=== PATIENT | male | born 1970 | race Caucasian/White ===

== ENCOUNTER 2020-10-27 13:45 | Emergency (ER) | payer MEDICAID, SELFPAY ==
[2020-10-27 14:22] VITALS: RESP 16; TEMP 37.1; O2SAT 98; BMI 22.4
--- NOTE | 2020-10-27 14:32 | HMH.EDUTC ---
[facility] Disposition Clinical Impression: Muscle spasm Disposition: Home, Self-Care Condition on Discharge: Good Instructions: Cyclobenzaprine, Etodolac, DI for Muscle Spasm Additional Instructions: *Etodolac juana 6 hours with meal as needed for pain/inflammation *Remember you had a Toradol shot in the clinic today, which is similar to Motrin and Etodlac do not start Etodolac until at least 10pm tonight *Not additional anti-inflammatory like motrin, aleve, advil Iburprofen with the above amount of Etodolac. You can still take Tylenol every 4 hours as needed if you need something else for pain *Ice 20 minutes every 2 hours for the first 48 hours after the initial injury followed by moist heat every 20 minutes 3-4 times a day to affected area *Muscle relaxer every 8 hours as needed for muscle spasms but remember, it WILL cause drowsiness You cannot take it and drive, operate machinery or care for small children. *Keep this area active, no movement leads to more stiffness, However take it easy and avoid heavy lifting pushing or pulling *Follow up with you family doctor if no improvement for further treatment Return if needed Straight to ER if any life threatening symptoms Prescriptions: Etodolac [Etodolac 200mg Cap*] 200 mg PO Q6H PRN #20 cap PRN Reason: Moderate Pain Prescription Printed Cyclobenzaprine HCl [Flexeril 10mg tablet] 10 mg PO TID PRN #15 tab PRN Reason: Muscle Spasm Prescription Printed Referrals: Neymar Aguilar MD [Primary Care Provider] - As needed Time of Disposition: 14:43 Medical Decision Making - Sumit Inquiry Pt receiving controlled substance: No Sumit was queried for this patient: No Vital Signs: 10/27/20 14:22 10/27/20 14:55 Temperature 98.7 F 98.7 F Temperature Source Oral Oral Pulse Rate 87 Respiratory Rate 16 16 Blood Pressure 0/0 L Blood Pressure Source Automatic Cuff Blood Pressure Position Sitting 02 Sat by Pulse Oximetry 98 Oxygen Delivery Method Room Air Room Air Orders (Tests/Meds): ED MEDICATIONS Discontinued Medications Generic Name Dose Route Start Last Admin Trade Name Freq PRN Reason Stop Dose Admin Ketorolac Tromethamine 60 mg 10/27/20 14:33 10/27/20 14:44 Ketorolac 60mg/2ml Vial IM 10/27/20 14:34 60 mg ONCE ONE Administration Methylprednisolone Sodium Succinate 125 mg 10/27/20 14:33 10/27/20 14:44 Methylprednisolone Sod Succ 125mg Vial IM 10/27/20 14:34 125 mg ONCE ONE Administration [facility] HPI - General Stated complaint: right shoulder pain, no accident Time Seen by Provider: 10/27/20 14:32 Mode of Arrival: Ambulatory Source of Information: Patient Limitations: No Limitations Description of Symptoms (Recalled from Triage Doc. by RN): right shoulder pain. 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 State that he thinks he over did it with his shoulder States that he has been having muscle spasms on and off in his right shoulder States that when it acts up it feels like it goes down into the shoulder and upper arm States that hurts when he tries to raise it States that he has similar symptoms before and had to take anti-inflammatories - Related Data Previous Rx's Medication Instructions Recorded Azithromycin [Z-Ross 250mg Tab*] 250 mg PO UD DOSE PK #6 tab 09/23/18 methylPREDNISolone [Medrol] 4 mg PO DIRECTED #21 tab.ds.pk 09/23/18 Cyclobenzaprine HCl [Flexeril 10mg 10 mg PO TID PRN #15 tab 10/27/20 tablet] Etodolac [Etodolac 200mg Cap*] 200 mg PO Q6H PRN #20 cap 10/27/20 Allergies Allergy/AdvReac Type Severity Reaction Status Date / Time codeine Allergy V
[2020-10-27 14:55] VITALS: BP 0/0; PULSE 87; RESP 16; TEMP 37.1; O2SAT 98
== END 2020-10-27 14:56 | disposition home or self-care (01) ==
PROVIDERS: Emergency Provider Nurse Practitioner; PCP Family Medicine
DX: M62.838 Other muscle spasm (principal); M25.511 Pain in right shoulder; X50.0XXA Overexertion from strenuous movement or load, initial encounter; F17.210 Nicotine dependence, cigarettes, uncomplicated
CPT/HCPCS: 96372; 99202; G0463

== ENCOUNTER → 2021-08-29 18:14 | Outpatient (CLI) | payer MEDICAID, SELFPAY ==
[2021-08-29 19:12] LABS: Basophils % 0.5 % (0.1-2.0); Eosinophils # 0.1 K/mm3 (0.0-0.4); Hematocrit 44.2 % (42.0-52.0); Hemoglobin 14.8 g/dL (14.1-18.0); Lymphocytes # 1.9 K/mm3 (0.7-4.5); Lymphocytes % 28.8 % (10-50); Mean Corpuscular HGB Conc 33.5 g/dL (31.8-35.4); Mean Corpuscular Hemoglobin 32.5 pg (27.0-31.2); Mean Corpuscular Volume 97.1 fl (80-94); Mean Platelet Volume 8.2 fl (7.4-10.4); Monocytes # 0.5 K/mm3 (0.1-1.0); Monocytes % 6.9 % (1.7-9.3); Neutrophils # 4.1 K/mm3 (1.8-7.8); Neutrophils % 61.9 % (37.0-80.0); Platelet Count 271 K/mm3 (142-424); Red Blood Count 4.55 M/mm3 (4.60-6.20); Red Cell Distribution Width 12.8 % (11.5-17.5); White Blood Count 6.7 K/mm3 (4.8-10.8)
[2021-08-29 19:21] LABS: Chloride 104 mmol/L (98-107)
[2021-08-29 19:22] LABS: Potassium 4.9 mmoL/L (3.5-5.1); Sodium 139 mmol/L (136-145)
[2021-08-29 19:24] LABS: Alanine Aminotransferase 24 U/L (12-78); Anion Gap 11.9 mEq/L (5-15); Aspartate Amino Transferase 24 U/L (17-59); Blood Urea Nitrogen 15 mg/dl (9-20); Carbon Dioxide 28 mmol/L (22.0-30.0); Estimated Glomerular Filt Rate 120 ml/min (>60); GFR (African American) 146 ML/MIN (>60)
[2021-08-29 19:25] LABS: Albumin Level 4.3 g/dl (3.5-5.0); Albumin/Globulin Ratio 1.4 (1.1-1.8); Alkaline Phosphatase 84 U/L (38-126); Bilirubin,Total 0.5 mg/dl (0.2-1.3); Calcium 10.2 mg/dl (8.4-10.2); Chol/HDL Ratio 3.2 (1-3.5); Cholesterol 158 mg/dl (140-200); Glucose 99 mg/dl (74-100); HDL Cholesterol 50 mg/dl (40-60); Total Protein,Serum 7.3 g/dl (6.3-8.2); Triglycerides 79 mg/dl (30-150); VLDL Cholesterol 16 mg/dL (0-40)
[2021-08-29 19:36] LABS: Direct LDL Cholesterol 91.55 mg/dL (100-129)
[2021-08-29 19:42] LABS: T4 (Thyroxine) 9.2 ug/dl (5.53-11.0)
[2021-08-29 19:47] LABS: 25-OH Vitamin D, Total 41.8 ng/mL (30-100)
[2021-08-29 19:56] LABS: Thyroid Stimulating Hormone 1.29 uIU/mL (0.465-4.68)
== END ==
PROVIDERS: Visit Provider Nurse Practitioner Family
DX: M25.512 Pain in left shoulder (principal); Z76.89 Persons encountering health services in other specified circumstances
CPT/HCPCS: 80053; 80061; 82306; 84436; 84443; 85025

== ENCOUNTER → 2021-10-09 12:39 | Outpatient (CLI) | payer MEDICAID, SELFPAY ==
--- NOTE | 2021-10-09 12:46 | XR_ITS ---
PROCEDURE: XR SHOULDER LT MIN 2V CLINICAL INDICATION: left shoulder pain COMPARISON: CR [id number] VIEWS from 12/01/2012 FINDINGS: No fracture or dislocation. No lytic or blastic change. There is normal mineralization. There are mild osteoarthritic changes of the glenohumeral joint Other findings:None. IMPRESSION: Mild osteoarthritis glenohumeral joint Dictated by: Kyler Alexandra MD 10/09/2021 14:02 Kyler Alexandra MD in [place] 10/09/2021 14:02
== END ==
PROVIDERS: PCP Nurse Practitioner Family; Visit Provider Orthopaedic Surgery
DX: M25.512 Pain in left shoulder (principal)
CPT/HCPCS: 73030

== ENCOUNTER 2024-06-16 11:12 | Emergency (ER) | payer OTHER, SELFPAY ==
[2024-06-16 11:14] VITALS: BP 166/76; PULSE 60; RESP 16; TEMP 36.6; O2SAT 96; BMI 25.7
--- NOTE | 2024-06-16 11:22 | ED_ITS ---
Discharge Plan Disposition Patient Disposition: Home, Self-Care Condition: Good Referrals Follow up/Referrals: Bhavik Echavarria DO [Staff Physician] - See instructions Provider,Sadiq, [Primary Care Provider] - See instructions Activity Restrictions/Add. Instructions Additional Instructions/Restrictions: As we discussed, the x-ray of your finger show that you have a likely small fracture of your affected finger. I have placed a referral to the orthopedic surgeon. You will need to remain in the finger splint until cleared by the orthopedic surgeon. Please return with any new or worsening symptoms. Clinical Impressions Clinical Impression: Finger fracture, right Stand Alone Forms Stand Alone Forms: Work/School Release Instructions Patient Instructions: DI for Finger Fracture Print Language Print Language: Cuban Discharge ED Provider: Gregg Santillan Adult HPI General Chief complaint: Extremity Injury, Upper Stated complaint: WC 06/16 Pain and swelling R middle finger Time Seen by Provider: 06/16/24 11:21 History of Present Illness HPI narrative: The patient presents with a chief complaint of pain in the right middle finger after a work-related injury. 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 A torque wrench on top and a wrench on the bottom crushed the finger between them. The patient is right-handed and reports no numbness or tingling in the affected finger. The pain is localized to the sides of the middle finger, and the patient denies any pain further up in the hand or on the outside of the finger. The patient reports that the pain is worse when trying to move the finger. The patient is able to make a fist and lift their fingers. The patient has not taken any pain medication and declines the offer for pain relief at this time. Please note that above description of symptoms, in this electronic medical record under categorization of recalled from ER triage doctor by RN are reflective of an initial nursing assessment, however, is not reflective of my full history and physical exam that was personally taken and clarified. Consequentially, this preceding description of symptoms, which may include the patient's categorized chief complaint in the EMR, do not reflect my personal clinical impression, and the ultimate description of history of present illness and patient stated complaints should be deferred to this section of the note. Unless stated otherwise or congruent with this section of the note, additional signs, symptoms, or incongruence should be interpreted as inaccurate with my clinical impression. Related Data Allergies Allergy/AdvReac Type Severity Reaction Status Date / Time No Known Allergies Allergy Verified 10/09/21 13:25 [facility] Disclaimer: The information contained in this section may have been updated after the patient was seen, as this information can be updated by other users. Social History Smoking Status: Current every day smoker tobacco type: cigarettes and smokeless tobacco second hand exposure: Yes alcohol intake: never substance use type: denies use current occupational status: employed Travel in the last 8 weeks: None ROS Obtained: Yes other As per HPI Physical Exam General General appearance: alert and in no apparent distress Head Head exam: atraumatic and normocephalic Eye Eye exam: Present normal appearance Neck Neck exam: Present normal inspection Chest Chest inspection: Present normal inspection and symmetric chest wall rise Respiratory Respiratory exam: Present normal lung sounds bilaterally; Absent respiratory distress Cardiovascular Cardiovascular exam: Present regular rate and normal rhythm Abdominal Exam Abdominal exam: Present soft Neurological Exam Neurological exam: Present alert and oriented X3 Psychiatric Psychiatric exam: Present normal affect and normal mood Skin Skin exam: Present warm and dry Other Other exam information: Injury to right finger, closed, clinically consistent with swan-neck deformity. Medical Decision Making Medical Records Medical records reviewed: Yes I reviewed the patient's medical records. Sumit Inquiry Pt receiving controlled substance: No Vital Signs: 06/16/24 11:14 06/16/24 12:00 06/16/24 13:57 Temperature 97.9 F 97.9 F Temperature Source Oral Oral Pulse Rate 48 L 78 Pulse Rate [Radial] 60 Respiratory Rate 16 18 Blood Pressure 126/69 181/89 H Blood Pressure [Right Arm] 166/76 H Blood Pressure Mean [Right Arm] 106 Blood Pressure Source Automatic Cuff Blood Pressure Source [Right Arm] Automatic Cuff Blood Pressure Position Sitting Blood Pressure Position [Right Arm] Sitting 02 Sat by Pulse Oximetry 96 95 Oxygen Delivery Method Room Air Room Air Orders (Tests/Meds): ED MEDICATIONS Discontinued Medications Generic Name Dose Route Start Last Admin Trade Name Freq PRN Reason Stop Dose Admin Lidocaine HCl 5 ml 06/16/24 13:24 06/16/24 13:45 Lidocaine 1% 10ml Mdv SQ 06/16/24 13:25 5 ml ONCE ONE Administration ORDERS Category Date Time Status XR finger RT min 2V Stat Exams 06/16/24 11:25 Completed Medical Decision Narrative: Patient with history and exam per above presenting for evaluation of finger injury Diagnoses considered include fracture, tendinous injury, no clinical evidence to suggest nerve injury, vascular injury. ED workup and treatment included: X-ray right finger Imaging was independently visualized and interpreted by me, significant for possible avulsion fracture, closed. Please refer to radiology report for full details. My clinical impression at this time is most consistent with concern for finger fracture, for which patient was placed in finger splint, will follow-up with orthopedic surgery. I discussed my clinical impression with patient and answered all questions. At this time, the evidence for any other entities in the differential is insufficient to warrant any further testing or ED observation. This was explained to the patient. The patient was advised that persistent or worsening symptoms require further evaluation. Critical Care Critical Care Time Critical Care Time: No
--- NOTE | 2024-06-16 11:25 | XR_ITS ---
FINAL REPORT CLINICAL HISTORY: injury from wrench FINDINGS: Right 3rd finger Three views were obtained. There is a questionable ossific density over the volar plate of the 3rd middle phalanx, may represent a tiny avulsion fracture. There are mild hypertrophic changes of osteoarthritis of the DIP joint. Soft tissue edema is seen over the dorsal aspect of the PIP joint. IMPRESSION: Questionable fracture as above. Reviewed, Interpreted and Dictated by Francisco Burns MD Transcribed by Arti iHll Authenticated and . [facility]
[2024-06-16 12:00] VITALS: BP 126/69; PULSE 48; O2SAT 95
[2024-06-16] MEDS: LIDOCAINE 1% 10ML MDV 5 ML SQ (13:45)
[2024-06-16 13:57] VITALS: BP 181/89; PULSE 78; RESP 18; TEMP 36.6; O2SAT 99
== END 2024-06-16 13:58 | disposition home or self-care (01) ==
PROVIDERS: Emergency Provider Emergency Medicine
DX: S62.602A Fracture of unspecified phalanx of right middle finger, initial encounter for closed fracture (principal); M79.644 Pain in right finger(s); W23.0XXA Caught, crushed, jammed, or pinched between moving objects, initial encounter
CPT/HCPCS: 73140; 99283

== ENCOUNTER 2025-07-29 11:15 | Emergency (ER) | payer SELFPAY ==
[2025-07-29 11:21] VITALS: BP 151/88; PULSE 62; RESP 20; TEMP 36.7; O2SAT 96; BMI 25.7
--- NOTE | 2025-07-29 12:02 | PC.NURSE ---
Called [facility] for possible transfer
--- NOTE | 2025-07-29 12:08 | PC.NURSE ---
on phone with at this time
--- NOTE | 2025-07-29 12:08 | PC.NURSE ---
Dr. Naravez speaking to [employer] now
--- NOTE | 2025-07-29 12:29 | PC.NURSE ---
Patient was informed MD wanted to transfer to for treatment. Pt states he does not have a ride to , and refuses an ambulance at this time. MD is aware. MD talks to patient about the risks of waiting for transport. Pt verbalized understanding.
--- NOTE | 2025-07-29 13:10 | HMH.EDGENADL ---
Discharge Plan Disposition Patient Disposition: Xfer Other Condition: Good Prescriptions Prescriptions: No Action No Known Home Medications Referrals Follow up/Referrals: Provider,Referral, MD [Primary Care Provider, Medical] - See instructions Activity Restrictions/Add. Instructions Additional Instructions/Restrictions: Please present to [facility] emergency department located at [address] in [place], [place]. You will be evaluated here by ophthalmology for your retinal detachment Clinical Impressions Clinical Impression: Retinal detachment Qualifiers: Laterality: right Qualified Code(s): H33.21 - Serous retinal detachment, right eye Vitreous hemorrhage Qualifiers: Laterality: right Qualified Code(s): H43.11 - Vitreous hemorrhage, right eye Stand Alone Forms Stand Alone Forms: Transfer Record - ED Print Language Print Language: Uzbek Discharge ED Provider: Eddie Narvaez Adult HPI General Chief complaint: Eye Problems Stated complaint: Headache, Loss of vision R eye Time Seen by Provider: 07/29/25 11:35 Mode of Arrival: Ambulatory Source of Information: Patient Description of Symptoms (Recalled from ER Triage Doc. by RN): Patient presents to ED with c/o of loss of vision in his right eye x4 days. Patient reports when he woke up this morning it was completly gone, he can see some light. Patient denies headache or any other symptoms. Pt does report hx of cataracts and never had surgery to repair. History of Present Illness HPI narrative: This is a 54-year-old male patient who is presenting to the emergency department today for evaluation of loss of vision in the medial aspect of his right eye. Patient states that he was having flashers and floaters in his vision yesterday afternoon and in the evening hours he noticed this acute loss of vision in the medial visual field. Patient states that the symptoms have persisted into today and he can detect light from the medial visual field but he is unable to detect anything else. He has no headaches. No neck stiffness. Related Data Home Medications ?Medication ?Instructions ?Recorded ?Confirmed No Known Home Medications 06/22/24 06/22/24 Allergies Allergy/AdvReac Type Severity Reaction Status Date / Time No Known Allergies Allergy Verified 06/22/24 14:49 [facility] Disclaimer: The information contained in this section may have been updated after the patient was seen, as this information can be updated by other users. Social History Smoking Status: Current every day smoker tobacco type: cigarettes and smokeless tobacco second hand exposure: Yes alcohol intake: never substance use type: denies use current occupational status: employed Travel in the last 8 weeks?: None Have you lived/traveled outside US in past 30 days?: No Contact w/someone who lives/traveled outside US past 30 days?: No Exposure to someone with infectious disease in past 14 days?: No Do you have a fever (greater than 100.4 F or 38 C)?: No Have you tested positive for COVID-19?: No Exposed to someone with COVID-19 in past 14 days?: No Do you have a sore throat?: No Do you have a cough?: No Do you have any weakness?: No Do you have any diarrhea?: No Are you experiencing any unusual bleeding?: No Do you have any muscle aches/pain?: No Do you have any abdominal pain?: No Are you experiencing loss of taste or smell?: No Other Medical History Have you received the Pneumonia Vaccine: No ROS Obtained: Yes Systems reviewed as appropriate & no additional complaints except as documented Physical Exam General General appearance: other (See MDM) Respiratory Respiratory exam: Present other (See MDM) Cardiovascular Cardiovascular exam: Present other (See MDM) Neurological Exam Neurological exam: Present other (See MDM) Medical Decision Making Medical Records Medical records reviewed: Yes I reviewed the patient's medical records. Screening: Per USPSTF and CDC recommendations, given the prevalence of disease in our region, it is our hospital?s policy to screen for HIV and viral Hepatitis for all patients aged 18 and over and those with ongoing risk factors. Sumit Inquiry Pt receiving controlled substance: No Sumit was queried for this patient: No Vital Signs: 07/29/25 11:21 Temperature 98.1 F Temperature Source Oral Pulse Rate [Right Brachial] 62 Respiratory Rate 20 Blood Pressure [Right Arm] 151/88 H Blood Pressure Mean [Right Arm] 109 Blood Pressure Source [Right Arm] Automatic Cuff Blood Pressure Position [Right Arm] Sitting 02 Sat by Pulse Oximetry 96 Oxygen Delivery Method Room Air Orders (Tests/Meds): ORDERS Category Date Time Status POCUS Point of Care (ER Only) Stat Exams 07/29/25 11:44 Completed Medical Decision Narrative: In summary, this is a 54-year-old male patient who is presenting to the emergency department today for evaluation of medial visual field loss in the right eye for the last 24 hours. This was preceded by flashers and floaters in his vision. Patient does not have any comorbidities that would complicate his medical management or care. On initial evaluation of the patient they were resting comfortably in no acute distress and nontoxic in appearance. They are hemodynamically stable, saturating well room air, and are neurologically intact. On physical examination he is appropriate alert and interactive with GCS of 15. His pupils are equal round and reactive to light. He has no a ferret pupillary defect in either eye. In the right eye he has intact peripheral visual lepe. The medial visual field is nearly anopsic. Differential diagnosis includes retinal detachment, posterior vitreous detachment, posterior vitreous hemorrhage, among others. I have performed a bedside POCUS ultrasound of the right eye. This shows a posterior vitreous hemorrhage as well as a retinal detachment. The detached portion of the retina attaches centrally in the posterior aspect of the eye which suggest that this is a true retinal detachment as opposed to a vitreous detachment. I have had an interactive discussion with ophthalmology who has requested that we send the patient to their ER for intervention. Patient does not want to go to by ambulance. He states that he can find a ride to this evening. We will transfer the patient by privately owned vehicle to the [facility]. Patient left the hospital in stable condition. Procedures Miscellaneous Procedure Procedure Performed: Limited ocular ultrasound Indication: Right sided visual loss Identified structures: Right eye Findings: Right eye: Retina: Abnormal with detachment present Lens: Normal Vitreous body: Debris present suggestive of posterior vitreous hemorrhage Impression: Right eye: Retinal detachment with posterior vitreous hemorrhage Images were saved to permanent archive The study was technically adequate CPT 45943-82 This study was performed by me and I personally interpreted all images/videos. Based on my clinical judgment these images were adequate and did not necessitate further imaging Critical Care Critical Care Time Critical Care Time: No
[2025-07-29 13:17] VITALS: BP 135/84; PULSE 65; RESP 18; TEMP 37.1; O2SAT 96
--- NOTE | 2025-07-29 13:25 | PC.NURSE ---
Report called to ED to [facility] Correia. Patient states he will go to [facility] this evening after a friend can transport him. aware.
== END 2025-07-29 13:20 | disposition other institution (70) ==
PROVIDERS: Emergency Provider Student in an Organized Health Care Education/Training Program
DX: H33.21 Serous retinal detachment, right eye (principal); H43.11 Vitreous hemorrhage, right eye
CPT/HCPCS: 99283; 99285